=== PATIENT | female | born 2000 | race Caucasian/White ===

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

== ENCOUNTER 2020-07-31 07:00 | Outpatient (CLI) | payer MEDICAID ==
--- NOTE | 2020-07-31 09:36 | XRAY Report ---
PROCEDURE: Hand 3 View LT INDICATIONS: L HAND PAIN TECHNIQUE: 3 views of the hand(s) acquired. COMPARISON: None FINDINGS: Bones: No fractures or dislocations. No suspicious bony lesions. Soft tissues: No suspicious soft tissue calcifications. IMPRESSION: Normal left hand Reviewed by: Lukas Redding on 07/31/2020 9:35 AM PDT Approved by: Lukas Redding on 07/31/2020 9:35 AM PDT Station ID: [id number]
--- NOTE | 2020-07-31 09:38 | XRAY Report ---
PROCEDURE: Wrist 3 View RT INDICATIONS: R WRIST PAIN TECHNIQUE: 3 views of the wrist were acquired. COMPARISON: None FINDINGS: Bones: No fractures or dislocations. No suspicious bony lesions. Scaphoid view: Normal Soft tissues: No suspicious soft tissue calcifications. IMPRESSION: Normal right wrist Reviewed by: Lukas Redding on 07/31/2020 9:37 AM PDT Approved by: Lukas Redding on 07/31/2020 9:37 AM PDT Station ID: [id number]
== END 2020-07-31 23:59 | disposition home or self-care (01) ==
LOC: DI.WCP 07:00
PROVIDERS: ATTEND Family Medicine
DX: M25.531 Pain in right wrist (principal); M79.642 Pain in left hand

== ENCOUNTER 2020-11-14 09:50 | Outpatient (CLI) | payer MEDICAID ==
--- NOTE | 2020-11-14 11:39 | XRAY Report ---
PROCEDURE: Lumbar Spine 2 View INDICATIONS: LSPINE PAIN TECHNIQUE: 30 views of the lumbar spine were acquired. COMPARISON: None. FINDINGS: Exam limited by patient body habitus. There are 5 nonrib-bearing lumbar-type vertebral bodies of norm al height and alignment. No gross evidence of pars defect. Mild disc height loss at L4-L5 and L5-S1. No significant degenerative changes of the facets. Sacroiliac joint spaces are maintained. Regional s oft tissues grossly unremarkable IMPRESSION: Minimal degenerative changes L4-L5 and L5-S1. Reviewed by: Jose Alfredo Eng MD on 11/14/2020 10:38 AM [facility] Approved by: Jose Alfredo Eng MD on 11/14/2020 10:38 AM [facility] Station ID: [id number]
== END 2020-11-14 23:59 | disposition home or self-care (01) ==
LOC: DI.N 09:50
PROVIDERS: ATTEND Family Medicine
DX: M47.817 Spondylosis without myelopathy or radiculopathy, lumbosacral region (principal)

== ENCOUNTER 2021-08-31 08:33 | Emergency (ER) | payer OTHER, MEDICAID ==
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
[2021-08-31] MEDS: methocarbamoL 500 MG TABLET PO STA ×2 (10:37→10:47)
[2021-08-31] MEDS: IBUPROFEN 600 MG TABLET PO STA ×2 (10:37→10:47)
[2021-08-31] MEDS: HYDROcod/ACETAM 5/325 MG TABLET PO STA ×2 (10:37→10:47)
[2021-08-31 11:16] VITALS: BP 145/86
== END 2021-08-31 11:20 | disposition home or self-care (01) ==
LOC: ED 08:33
DX: S39.012A Strain of muscle, fascia and tendon of lower back, initial encounter (principal); V43.52XA Car driver injured in collision with other type car in traffic accident, initial encounter; Y92.410 Unspecified street and highway as the place of occurrence of the external cause; F17.200 Nicotine dependence, unspecified, uncomplicated
CPT/HCPCS: 99283; 99284

== ENCOUNTER 2022-11-08 21:06 | Emergency (ER) | payer MEDICAID ==
--- NOTE | 2022-11-08 21:29 | ED Physician Documentation ---
History of Present Illness - Stated complaint Stated Complaint: UPPER CHEST PX - Chief complaint Chief Complaint: Abd Pain - Additonal information Additional information: 22-year-old female presents to the emergency department for evaluation of chest pain. She describes it as sharp and radiating from her upper epigastrium into her chest. It is nonexertional. She has no orthopnea. No lower leg swelling. Symptoms have been ongoing now for a month. 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 She is attending group therapy 3 Times a week which she has found helpful. She is a heavy tobacco user. She reports a strong family history of coronary artery disease. She is concerned that the chest pain could be cardiac in nature. No cough. No recent fevers. No vomiting or diarrhea. She takes no prescribed medications. Denies possibility of . Patient does not have pleuritic component to this chest pain. Review of Systems Constitutional: denies: Fever, Chills Cardiac: reports: Chest pain / pressure. denies: Palpitations, Pedal edema, Calf pain Respiratory: denies: Dyspnea, Cough, Hemoptysis, Wheezing GI: reports: Reviewed and negative : reports: Reviewed and negative Skin: reports: Reviewed and negative Musculoskeletal: reports: Reviewed and negative PD PAST MEDICAL HISTORY - Past Medical History Cardiovascular: None Respiratory: None Neuro: None Endocrine/Autoimmune: None Musculoskeletal: None - Past Surgical History Past Surgical History: No - Present Medications Home Medications: Ambulatory Orders Medication Instructions Recorded Confirmed ARIPiprazole [Abilify] 5 mg PO DAILY 08/31/21 08/31/21 HYDROcod/ACETAM 5/325 [[place] 5/325] 1 ea PO Q6H PRN #12 tablet 08/31/21 Naproxen 500 mg PO BID PRN #20 tab 08/31/21 methocarbamoL [Robaxin] 500 mg PO Q6H PRN #30 tablet 08/31/21 Omeprazole 40 mg PO DAILY #30 cap 11/08/22 - Allergies Allergies/Adverse Reactions: Allergies Allergy/AdvReac Type Severity Reaction Status Date / Time aspirin Allergy Itching Verified 11/08/22 21:12 - Social History Does the pt smoke?: Yes Smoking Status: Current every day smoker Does the pt drink ETOH?: No Does the pt have substance abuse?: No - Immunizations Immunizations are current?: Yes - POLST Patient has POLST: No PD ED PE NORMAL - General General: Alert and oriented X 3, No acute distress - HEENT HEENT: PERRL, Moist mucous membranes - Neck Neck: Supple, no meningeal sign - Cardiac Cardiac: RRR, No murmur, Strong equal pulses - Respiratory Respiratory: No respiratory distress, Clear bilaterally - Abdomen Abdomen: Normal bowel sounds, Soft, Non tender - Back Back: No CVA TTP - Derm Derm: Normal color, Warm and dry, No rash - Extremities Extremities: No deformity, No tenderness to palpate, Normal ROM s pain - Neuro Neuro: Alert and oriented X 3, intern architect 2-12 intact Eye Opening: Spontaneous Motor: Obeys Commands Verbal: Oriented GCS Score: 15 Results - Vitals Vitals: Vital Signs - 24 hr 11/08/22 11/08/22 11/08/22 21:12 21:53 22:11 Temperature 36.5 C 36.9 C Heart Rate 94 90 80 Respiratory 16 19 16 Rate Blood Pressure 137/59 H 140/75 H 122/84 H O2 Saturation 98 100 100 Oxygen O2 Source Room air - EKG (time done) 2127 Rate: Rate (enter#) (75) Rhythm: NSR [place]: Normal Intervals: Normal [place]. No: Prolonged QT QRS: Normal Ischemia: Normal ST segments Compare to prior EKG: Old EKG unavailable Computer interpretation: Agree with computer - Labs Labs: Laboratory Tests 11/08/22 11/08/22 11/08/22 21:28 21:28 21:28 WBC RBC Hgb Hct MCV MCH MCHC RDW Plt Count MPV Neut # (Auto) Lymph # (Auto) [place] # (Auto) Eos # (Auto) Baso # (Auto) Absolute Nucleated RBC Nucleated RBC % Sodium 134 L Potassium 3.7 Chloride 99 L Carbon Dioxide 24 Anion Gap 11.0 BUN 20 Creatinine 0.8 Estimated GFR (MDRD) 90 Glucose 85 Calcium 9.4 Total Bilirubin 0.5 AST 19 ALT 18 Alkaline Phosphatase 67 Troponin I High Sens < 2.3 L Total Protein 7.7 Albumin 4.2 Globulin 3.5 Albumin/Globulin Ratio 1.2 Lipase 29 Serum HCG, Qual NEGATIVE 11/08/22 21:53 WBC 9.6 RBC 4.57 Hgb 13.4 Hct 40.7 MCV 89.1 MCH 29.3 MCHC 32.9 RDW 13.0 Plt Count 308 MPV 9.7 Neut # (Auto) 5.6 Lymph # (Auto) 2.8 [place] # (Auto) 0.8 Eos # (Auto) 0.4 Baso # (Auto) 0.0 Absolute Nucleated RBC 0.00 Nucleated RBC % 0.0 Sodium Potassium Chloride Carbon Dioxide Anion Gap BUN Creatinine Estimated GFR (MDRD) Glucose Calcium Total Bilirubin AST ALT Alkaline Phosphatase Troponin I High Sens Total Protein Albumin Globulin Albumin/Globulin Ratio Lipase Serum HCG, Qual PD Medical Decision Making - ED course Complexity details: reviewed results, re-evaluated patient, considered differential, d/w patient ED course: 22 y.o female here with intermittent chest pain for one month. starts from epigastrim and radiatus up. hx of meth use, clean now for 30 days. + heavy tobacco Pt is perc negative. doubt PE. Ekg non ischemic. trop negative. given age, low risk for acs. cxr negative for focal infiltrate, ptx, pericardial effusion or pleural effusion My interpretation of the cbc and electrolytes is that there are not worrisome findings. pt is not likely gerd/gastritis. f/u with pcp. omeprazole rx levied. emergent return precautions discussed Departure - Departure Disposition: Home, Self Care Clinical Impression: Chest pain Qualifiers: Chest pain type: unspecified Qualified Code(s): R07.9 - Chest pain, unspecified Condition: Stable Record reviewed to determine appropriate education?: Yes Instructions: ED Chest Pain NonCardiac Prescriptions: Omeprazole 40 mg PO DAILY #30 cap Comments: You were seen in the emergency department today because intermittently for the last month you have been having this bloating sensation in your upper abdomen with radiation of pain into your chest. This has followed your recent abstinence from methamphetamine. We congratulate you on getting clean. Here in the ER your chest x-ray and EKG do not show any worrisome findings. We did obtain a CBC, electrolytes and a troponin that were all negative. You are not . The etiology of your symptoms is not clear though it does not appear to be pneumonia, heart attack, heart failure or other worrisome process. As some of your symptoms may be related to gastritis or stomach inflammation in the setting of meth amphetamine use and tobacco use. I encourage you to stop smoking tobacco if you are able. You may benefit from taking an ziwd-kal-jwcgrft acid pill such as Protonix or omeprazole. It is important that you follow closely with Carisa Pollard. Your primary care provider should do an annual physical on you and discussed with you long-term management of your overall health. Reasons to return to emergency department would include sudden severe shortness of air, any fainting episodes, chest pain associated with fainting, black or bloody stools. Discharge Date/Time: 11/08/22 22:11
[2022-11-08 21:52] LABS: ALBUMIN 4.2 g/dL (3.2-5.5); ALBUMIN/GLOBULIN RATIO 1.2 (1.0-2.2); BILIRUBIN,TOTAL 0.5 mg/dL (0.2-1.0); CALCIUM 9.4 mg/dL (8.5-10.3); CREATININE 0.8 mg/dL (0.4-1.0); POTASSIUM 3.7 mmol/L (3.5-5.0); TOTAL PROTEIN 7.7 g/dL (6.7-8.2)
[2022-11-08 21:58] LABS: BASOPHILS % (AUTO) 0.3 %; EOSINOPHILS # (AUTO) 0.4 10^3/uL (0.0-0.7); EOSINOPHILS % (AUTO) 4.3 %; HCT - HEMATOCRIT 40.7 % (37.0-47.0); HGB - HEMOGLOBIN 13.4 g/dL (12.0-16.0); LYMPHOCYTES # (AUTO) 2.8 10^3/uL (1.5-3.5); LYMPHOCYTES % (AUTO) 28.8 %; MEAN CORPUSCULAR HEMOGLOBIN 29.3 pg (27.0-31.0); MEAN CORPUSCULAR HGB CONC 32.9 g/dL (32.0-36.0); MEAN CORPUSCULAR VOLUME 89.1 fL (81.0-99.0); MEAN PLATELET VOLUME 9.7 fL (7.9-10.8); MONOCYTES # (AUTO) 0.8 10^3/uL (0.0-1.0); MONOCYTES % (AUTO) 8.3 %; NEUTROPHILS # (AUTO) 5.6 10^3/uL (1.5-6.6); NEUTROPHILS % (AUTO) 58.1 %; PLT - PLATELET COUNT 308 10^3/uL (130-450); RED BLOOD COUNT 4.57 10^6/uL (4.20-5.40); WHITE BLOOD COUNT 9.6 x10^3/uL (4.8-10.8)
[2022-11-08 21:58] LABS: HCG,QUALITATIVE BLOOD NEGATIVE
[2022-11-08 22:11] VITALS: BP 122/84
--- NOTE | 2022-11-08 22:33 | XRAY Report ---
PROCEDURE: Chest 1 View X-Ray INDICATIONS: chest pain TECHNIQUE: One view of the chest was acquired. COMPARISON: None. FINDINGS: Surgical changes and devices: None. Lungs and pleura: No pleural effusions or pneumothorax. Lungs are clear. Mediastinum: Mediastinal contours appear normal. Heart size is normal. Bones and chest wall: No suspicious bony lesions. Overlying soft tissues appear unremarkable. IMPRESSION: 1. No acute cardiopulmonary disease. Reviewed by: Adelfo Schwartz MD on 11/08/2022 10:32 PM [facility] Approved by: Adelfo Schwartz MD on 11/08/2022 10:32 PM [facility] Station ID: [id number]
== END 2022-11-08 22:11 | disposition home or self-care (01) ==
LOC: ED 21:06
DX: R07.9 Chest pain, unspecified (principal); F17.200 Nicotine dependence, unspecified, uncomplicated; Z82.49 Family history of ischemic heart disease and other diseases of the circulatory system
CPT/HCPCS: 36415; 80053; 83690; 84484; 84703; 85025; 93005; 99284

== ENCOUNTER 2024-02-08 08:30 | Outpatient (CLI) | payer MEDICAID ==
[2024-02-08 11:50] LABS: BASOPHILS % (AUTO) 0.6 %; EOSINOPHILS # (AUTO) 0.3 10^3/uL (0.0-0.7); EOSINOPHILS % (AUTO) 3.5 %; HCT - HEMATOCRIT 39.3 % (37.0-47.0); HGB - HEMOGLOBIN 12.9 g/dL (12.0-16.0); LYMPHOCYTES # (AUTO) 1.3 10^3/uL (1.5-3.5); LYMPHOCYTES % (AUTO) 18.1 %; MEAN CORPUSCULAR HEMOGLOBIN 29.3 pg (27.0-31.0); MEAN CORPUSCULAR HGB CONC 32.8 g/dL (32.0-36.0); MEAN CORPUSCULAR VOLUME 89.3 fL (81.0-99.0); MEAN PLATELET VOLUME 10.6 fL (7.9-10.8); MONOCYTES # (AUTO) 0.6 10^3/uL (0.0-1.0); MONOCYTES % (AUTO) 8.8 %; NEUTROPHILS # (AUTO) 4.9 10^3/uL (1.5-6.6); NEUTROPHILS % (AUTO) 68.9 %; PLT - PLATELET COUNT 319 10^3/uL (130-450); RED CELL DISTRIBUTION WIDTH 12.6 % (12.0-15.0); WHITE BLOOD COUNT 7.1 x10^3/uL (4.8-10.8)
[2024-02-08 12:20] LABS: ALBUMIN/GLOBULIN RATIO 1.3 (1.0-2.2); ALKALINE PHOSPHATASE 69 IU/L (42-121); ALT ALANINE AMINOTRANSFERASE 11 IU/L (10-60); AST ASPARTATE AMINOTRANSFERASE 12 IU/L (10-42); BILIRUBIN,TOTAL 0.3 mg/dL (0.2-1.0); BUN - BLOOD UREA NITROGEN 9 mg/dL (6-20); CALCIUM 9.6 mg/dL (8.5-10.3); CARBON DIOXIDE - CO2 23 mmol/L (21-32); CHLORIDE 110 mmol/L (101-111); CREATININE 0.7 mg/dL (0.6-1.3); GFR - MDRD 104 (>89); GLUCOSE 90 mg/dL (74-104); POTASSIUM 4.2 mmol/L (3.5-4.5); SODIUM 137 mmol/L (135-145); TOTAL PROTEIN 7.1 g/dL (6.4-8.9)
[2024-02-08 12:30] LABS: LIPASE < 10 U/L (11-82)
== END 2024-02-08 08:45 | disposition home or self-care (01) ==
LOC: LAB.N 08:30
PROVIDERS: ATTEND Physician Assistant Medical
DX: R10.11 Right upper quadrant pain (principal); R82.79 Other abnormal findings on microbiological examination of urine
CPT/HCPCS: 36415; 80053; 83690; 85025; 87086

== ENCOUNTER 2024-02-09 08:20 | Emergency (ER) | payer MEDICAID ==
--- NOTE | 2024-02-09 08:35 | ED Physician Documentation ---
PD HPI ABD PAIN - Stated complaint Stated Complaint: SOA,RT SD PX - Chief complaint Chief Complaint: Abd Pain - History obtained from History obtained from: Patient - History of Present Illness Timing - onset: How many days ago (10) Timing - duration: Days (10) Timing - details: Gradual onset, Still present, Waxing and waning. No: Intermittant Quality: Cramping, Aching, Pain Location: RUQ, Epigastric Radiation: Chest (right side up to shoulder), Lower back Improved by: No: Eating Worsened by: Breathing (the past 1-2 days), Position (worse lying flat or to left.), Palpation. No: Eating Associated symptoms: Nausea, Loss of appetite. No: Fever, Vomiting, Diarrhea, Constipation, Melena, Dysuria Similar symptoms before: Has not had sx before Recently seen: Clinic (with labs done that were okay. Order for U/S outpt but pain worse the past 1-2 days so referred here to ED when called office for appt.) Review of Systems Constitutional: denies: Fever, Chills GI: reports: Abdominal Pain, Nausea. denies: Vomiting, Diarrhea : denies: Dysuria, Frequency, Discharge Skin: denies: Rash PD PAST MEDICAL HISTORY - Past Medical History Past Medical History: No Cardiovascular: None Respiratory: None Neuro: None Endocrine/Autoimmune: None Musculoskeletal: None - Past Surgical History Past Surgical History: No - Present Medications Home Medications: Ambulatory Orders Medication Instructions Recorded Confirmed Amox/Clav 875/125 [Augmentin] 1 each PO BID #10 tablet 02/09/24 Docusate Sodium 100Mg Capsule 100 mg PO DAILY #20 cap 02/09/24 [Colace 100Mg Capsule] HYDROcod/ACETAM 5/325 [[place] 5/325] 1 ea PO Q6H PRN #14 tablet 02/09/24 Meloxicam [Mobic] 7.5 mg PO BID 10 Days #20 tablet 02/09/24 Ondansetron Odt [Zofran] 4 mg TL Q6H PRN #10 tablet 02/09/24 - Allergies Allergies/Adverse Reactions: Allergies Allergy/AdvReac Type Severity Reaction Status Date / Time aspirin Allergy Itching Verified 02/09/24 08:33 - Social History Does the pt smoke?: Yes Smoking Status: Current every day smoker Does the pt drink ETOH?: No Does the pt have substance abuse?: No - Immunizations Immunizations are current?: Yes - POLST Patient has POLST: No PD ED PE NORMAL - Vitals Vital signs reviewed: Yes - General General: Alert and oriented X 3, Well developed/nourished, Other (appears uncomfortable upper mid abd. ) - Cardiac Cardiac: RRR, No murmur - Respiratory Respiratory: No respiratory distress, Clear bilaterally - Abdomen Abdomen: Soft, Non distended, Other (tender upper abd right/middle, and left. No percussion tenderness, but mild rebound toward middle. No rash nor sores. ) Results - Vitals Vitals: Vital Signs - 24 hr 02/09/24 02/09/24 08:28 12:00 Temperature 36.0 C L Heart Rate 92 68 Respiratory 20 15 Rate Blood Pressure 140/73 H 134/71 H O2 Saturation 96 100 Oxygen O2 Source Room air - Labs Labs: Laboratory Tests 02/09/24 02/09/24 02/09/24 08:46 08:46 10:30 WBC 5.8 RBC 4.27 Hgb 12.6 Hct 38.6 MCV 90.4 MCH 29.5 MCHC 32.6 RDW 12.6 Plt Count 304 MPV 9.6 Neut # (Auto) 3.8 Lymph # (Auto) 1.2 [place] # (Auto) 0.5 Eos # (Auto) 0.2 Baso # (Auto) 0.0 Absolute Nucleated RBC 0.00 Nucleated RBC % 0.0 Sodium 136 Potassium 4.2 Chloride 109 Carbon Dioxide 23 Anion Gap 4.0 L BUN 7 Creatinine 0.7 Estimated GFR (MDRD) 104 Glucose 89 Calcium 9.3 Total Bilirubin 0.2 AST 10 ALT 10 Alkaline Phosphatase 59 Total Protein 6.7 Albumin 3.8 Globulin 2.9 Albumin/Globulin Ratio 1.3 Lipase < 10 L Urine Color YELLOW Urine Clarity HAZY Urine pH 6.0 Ur Specific [place] 1.025 Urine Protein NEGATIVE Urine Glucose (UA) NEGATIVE Urine Ketones NEGATIVE Urine Occult Blood SMALL H Urine Nitrite NEGATIVE Urine Bilirubin NEGATIVE Urine Urobilinogen 0.2 (NORMAL) Ur Leukocyte Esterase TRACE H Urine RBC 0-5 Urine WBC 4-5 Ur Squamous Epith Cells MOD Squamous H Urine Bacteria Few Ur Microscopic Review INDICATED Urine Culture Comments NOT INDICATED Urine HCG, Qual NEGATIVE - Rads (name of study) upper abd US Relevant Findings:: Prelim report reviewed (no acute process per US tech.), EMP independent interpretation of test abd/pelvic CT Relevant Findings:: Prelim report reviewed (Colon wall thickening c/w colitis. No abscess nor perforation. No no other acute process. ) PD Medical Decision Making - ED course Complexity details: reviewed results (Lipase and LFTs are normal. US RUQ did not show any obvious abnormalities, in particular normal GB. Given this and the duration of the pain, shared decision is to obtain CT imaging. ), re-evaluated patient (improved with fluids/toradol and zofran. Offered Fentanyl lower dose but pt declined, will wait until Rx and back home. ), considered differential (area of the abd pain is most suggestive of gallbladder area, though pain not patterend with eating nor particular food types. ), d/w patient Reviewed Lab Results: CT imaging showing colonic wall thickening c/w colitis. No abcesss nor perforation. Pt has had ongoing consistent pain and the colitis is the only identified process, so will treat for that. Has not had diarrhea so am not curr ently testing for stool culture nor c.diff as likelihood very low in abscence of diarrhea. I presume the upper abd pain is the transverse colon involvement of the colits, as Rad report does not identify other causes of pain there. Social Determinants of Health: She is supposed to work this evening, which sounds unpleasant given her level of pain, and then shouldn't if needing opiates, so work note given. Departure - Departure Disposition: 01 Home, Self Care Clinical Impression: Upper abdominal pain, Acute colitis Condition: Stable Record reviewed to determine appropriate education?: Yes Prescriptions: Amox/Clav 875/125 [Augmentin] 1 each PO BID #10 tablet Docusate Sodium 100Mg Capsule [Colace 100Mg Capsule] 100 mg PO DAILY #20 cap Meloxicam [Mobic] 7.5 mg PO BID 10 Days #20 tablet HYDROcod/ACETAM 5/325 [[place] 5/325] 1 ea PO Q6H PRN #14 tablet PRN Reason: Pain Ondansetron Odt [Zofran] 4 mg TL Q6H PRN #10 tablet PRN Reason: Nausea / Vomiting Comments: Your blood test the CBC and white count as well as the blood test markers associated with the pancreas and liver are normal. The ultrasound of your gallbladder was normal as well. We did do a CT scan following these to help better identify the cause of your pain. The CT scan is showing inflammation of the wall of the large intestine (colitis). It is including part of the intestine that runs in the upper part of the abdomen. Will treat the colitis with a combination of anti-inflammatories, stool softener, nausea and pain medicine as well as an antibiotic. I sent these prescriptions to your preferred pharmacy. I would anticipate improvement in your symptoms over the next 2 to 3 days. I did provide a note for work for at night off and then couple of days of light duty as we discussed. I would anticipate improvement over the next few days. Recheck if not or if you are having worsening symptoms. I am prescribing a short course of narcotic pain medication for you. These are potentially dangerous and addictive medications that should be used carefully. These medications may constipate you. Take an fudd-hir-irfgkna stool softener such as docusate twice daily with plenty of water while taking these medications. If you go 24 hours without a bowel movement, take bpki-fks-[id number] MiraLAX, per package instructions. Do not drink or drive while taking these medications. If you received narcotic or sedating medications while in the emergency department do not drive for 24 hours. Store this medication in a safe, secure place and out of reach of children. It is a violation of federal law to give or sell this medication to another person or to use in a manner other than prescribed. The ED will not refill narcotic prescriptions, including prescriptions lost or stolen. You can dispose of unwanted medications at the [facility]'s office or at several pharmacies such as [facility]. Forms: PCP List, Activity restrictions Discharge Date/Time: 02/09/24 12:23
[2024-02-09 08:50] LABS: BASOPHILS % (AUTO) 0.5 %; EOSINOPHILS # (AUTO) 0.2 10^3/uL (0.0-0.7); HCT - HEMATOCRIT 38.6 % (37.0-47.0); HGB - HEMOGLOBIN 12.6 g/dL (12.0-16.0); LYMPHOCYTES # (AUTO) 1.2 10^3/uL (1.5-3.5); MEAN CORPUSCULAR HEMOGLOBIN 29.5 pg (27.0-31.0); MEAN CORPUSCULAR HGB CONC 32.6 g/dL (32.0-36.0); MEAN CORPUSCULAR VOLUME 90.4 fL (81.0-99.0); MEAN PLATELET VOLUME 9.6 fL (7.9-10.8); MONOCYTES # (AUTO) 0.5 10^3/uL (0.0-1.0); NEUTROPHILS # (AUTO) 3.8 10^3/uL (1.5-6.6); NEUTROPHILS % (AUTO) 66.3 %; PLT - PLATELET COUNT 304 10^3/uL (130-450); RED BLOOD COUNT 4.27 10^6/uL (4.20-5.40); RED CELL DISTRIBUTION WIDTH 12.6 % (12.0-15.0); WHITE BLOOD COUNT 5.8 x10^3/uL (4.8-10.8)
[2024-02-09 09:15] LABS: ALBUMIN 3.8 g/dL (3.2-5.5); ALBUMIN/GLOBULIN RATIO 1.3 (1.0-2.2); ALKALINE PHOSPHATASE 59 IU/L (42-121); ALT ALANINE AMINOTRANSFERASE 10 IU/L (10-60); AST ASPARTATE AMINOTRANSFERASE 10 IU/L (10-42); BILIRUBIN,TOTAL 0.2 mg/dL (0.2-1.0); BUN - BLOOD UREA NITROGEN 7 mg/dL (6-20); CALCIUM 9.3 mg/dL (8.5-10.3); CARBON DIOXIDE - CO2 23 mmol/L (21-32); CHLORIDE 109 mmol/L (101-111); CREATININE 0.7 mg/dL (0.6-1.3); GFR - MDRD 104 (>89); GLUCOSE 89 mg/dL (74-104); POTASSIUM 4.2 mmol/L (3.5-4.5); SODIUM 136 mmol/L (135-145); TOTAL PROTEIN 6.7 g/dL (6.4-8.9)
[2024-02-09] MEDS: fentaNYL 100 MCG/2 ML VIAL IVP STA (09:15)
[2024-02-09] MEDS: KETOROLAC 15 MG/ML VIAL IVP STA (09:17)
[2024-02-09] MEDS: SODIUM CHLORIDE 0.9% 1,000 ML IV STA (09:17)
[2024-02-09 09:18] LABS: LIPASE < 10 U/L (11-82)
[2024-02-09] MEDS: ONDANSETRON 4 MG/2 ML VIAL IVP STA (09:18)
[2024-02-09] MEDS ORDERED: iohexoL-300 100 ML VIAL ONE (10:20)
[2024-02-09 10:34] LABS: BILIRUBIN,URINE NEGATIVE (NEGATIVE); GLUCOSE, URINE (UA) NEGATIVE (NEGATIVE); KETONES,URINE (UA) NEGATIVE (NEGATIVE); LEUKOCYTE ESTERASE, URINE TRACE (NEGATIVE); NITRITE,URINE NEGATIVE (NEGATIVE); OCCULT BLOOD,URINE SMALL (NEGATIVE); PROTEIN,URINE NEGATIVE (NEGATIVE); UROBILINOGEN,URINE 0.2 (NORMAL) E.U./dL (NORMAL)
[2024-02-09 10:35] LABS: CLARITY,URINE HAZY (CLEAR)
[2024-02-09 10:36] LABS: HCG UR QUAL NEGATIVE
--- NOTE | 2024-02-09 10:43 | Ultrasound Report ---
PROCEDURE: Abdomen Limited INDICATIONS: RUQ abd pain for a week, worsening TECHNIQUE: Real-time focused scanning was performed of the abdomen, with image documentation. COMPARISONS: None. FINDINGS: Liver: Liver is normal in size and homogeneous in echotexture. Gallbladder: No gallstones, sludge, wall thickening or pericholecystic edema. Biliary ducts: Intrahepatic bile ducts are non-dilated. Extrahepatic bile duct caliber measures 3.9 mm. Normal is 6-7 mm or less in diameter, or 10 mm or less post-cholecystectomy. Pancreas: Visualized portions of the pancreas are sonographically normal. Right kidney: Normal in size and echotexture. Right kidney measures 11.7 cm long. No hydronephrosis or nephrolithiasis. No solid masses. No complex renal cystic lesions which require follow-up. Aorta: Visualized aorta is normal in caliber at less than 3 cm. IVC: Intrahepatic inferior vena cava is patent. Miscellaneous: No free abdominal fluid. IMPRESSION: Unremarkable abdominal ultrasound. Reviewed by: Sara Mcbride MD, PhD on 02/09/2024 10:42 AM PDT Approved by: Sara Mcbride MD, PhD on 02/09/2024 10:42 AM PDT Station ID: [id number]
[2024-02-09] MEDS: iohexoL-300 100 ML VIAL IVP ONE (10:45)
[2024-02-09 10:46] LABS: BACTERIA,URINE Few /HPF (None Seen); RBC,URINE 0-5 /HPF (0-5); SQUAMOUS EPITHELIAL CELL,UR MOD Squamous (<= Few)
--- NOTE | 2024-02-09 10:55 | CT Report ---
PROCEDURE: Abdomen/Pelvis W INDICATIONS: RUQ abd pain for over a week CONTRAST: Omni 300 100ml TECHNIQUE: After the administration of intravenous contrast, a CT scan of the abdomen and pelvis was performed. Images were recorded and evaluated at appropriate window settings. Reformats: coronal and sagittal. F or radiation dose reduction, the following was used: automated exposure control, adjustment of mA and /or kV according to patient size. COMPARISON: Correlation is made with prior lumbar spine CT, 08/31/2021 FINDINGS: Image quality: Diagnostic. Lower chest: Unremarkable. Liver: No solid mass. Gallbladder and biliary tree: No significant gallbladder abnormality is seen by CT. Spleen: No splenomegaly. Pancreas: No pancreatic ductal dilation. Adrenals: No adrenal nodule. Kidneys and ureters: No hydronephrosis. No renal cystic lesion which requires follow up. No solid mas s. Stomach, bowel and peritoneum: Generalized prominence of the small bowel can be seen. There is formin g stool seen within the terminal ileum, with the terminal ileum measuring up to 2.9 cm. There is mild wall thickening and inflammatory change seen adjacent to the descending colon, with milder inflammat ory changes seen elsewhere within the colon. No significant free fluid is seen. No free air is seen. No abscess is seen. Lymph nodes: No central or retroperitoneal adenopathy. Vessels: No infrarenal aortic aneurysm. PELVIS Reproductive organs: The uterus demonstrates an unremarkable appearance for age. No adnexal masses ar e seen. Tampon artifact is noted. Bladder: No abnormal wall thickening, accounting for underdistention. Pelvic lymph nodes: No pelvic adenopathy by size criteria. Bones: No aggressive osseous abnormality. Other: No significant ventral or inguinal hernia. Note is made of prominence of left lung remains, associated hypertrophy of the left gonadal vein. IMPRESSION: These imaging findings are most compatible with colitis, with associated secondary small bowel ileus. No findings of perforation or abscess can be seen. Prominence of left pelvic veins can be seen, with hypertrophy of the left gonadal vein. 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 AVM is possible, yet considered to be less likely based upon im aging appearance. No significant gallbladder abnormality can be seen on these CT images. Reviewed by: Prabhjot Hutton MD on 02/09/2024 9:54 AM [facility] Approved by: Prabhjot Hutton MD on 02/09/2024 9:54 AM [facility] Station ID: [id number]
[2024-02-09] MEDS: AMOX/CLAV 875 MG/125 MG TABLET PO STA (11:53)
[2024-02-09 12:24] VITALS: BP 134/71; O2SAT 100
== END 2024-02-09 12:23 | disposition home or self-care (01) ==
LOC: ED 08:20
DX: K52.9 Noninfective gastroenteritis and colitis, unspecified (principal); F17.200 Nicotine dependence, unspecified, uncomplicated
CPT/HCPCS: 36415; 74177; 76705; 80053; 81001; 81025; 83690; 85025; 96374; 96375; 99284; A9270; Q9967; 81003; 87086